=== PATIENT | male | born 1980 | race Caucasian/White ===

== ENCOUNTER 2017-03-31 02:11 | Observation (INO) | payer OTHER ==
[2017-03-31] MEDS ORDERED: ACETAMINOPHEN 325 MG TAB PO PRN (03:45)
[2017-03-31] MEDS ORDERED: ONDANSETRON 4 MG/2 ML VIAL IVP PRN (03:45)
[2017-03-31] MEDS ORDERED: ONDANSETRON DISINTEGRATING 4 MG TAB PO PRN (03:45)
--- NOTE | 2017-03-31 04:03 | PDGENHP ---
History and Physical - Chief Complaint Chest pain - History of Present Illness 36 yo M w/ hx of HTN(not on meds) and HLD presenting with chest pain. Patient woke up with mild chest discomfort on the day prior to admission. This discomfort persisted all day without much variation until he was getting ready for bed. At that point, pain spread to his neck and left arm. At that point he decided to go the [facility] ED. Upon arrival in ED, his BP was noted to be elevated at 170/100. Troponin was negative and ECG showed TWIs in III and AVF. Nitroglycerin x3 did not affect his pain but did lower his BP. His chest pain subsided over the next hour. Patient reports hx of borderline HTN(not on meds), and "very high triglycerides " for which he takes Niacin daily. He quit using tobacco in 2008 and has a family hx of HTN and HLD. He exercises ~5-6 times weekly and does not have chest pain with exercise. History Information - Allergies/Home Medication List Allergies/Adverse Reactions: No Allergies [NKDA] Allergy (Verified 03/31/17 03:45) I have personally reviewed and updated: family history, medical history - Past Medical History hypertension, hyperlipidemia - Surgical History Reports: no pertinent surgical hx - Family History Positive for: hypertension - Social History Smoking Status: Former smoker (Quit 2008) Alcohol Use: Occasionally Drug Use: None Review of Systems ROS: 10pt was reviewed & negative except for what was stated in HPI & below Physical Exam Constitutional: no apparent distress, appears nourished Eyes: PERRL, EOMI Ears, Nose, Mouth, Throat: moist mucous membranes, hearing normal Cardiovascular: regular rate and rhythym, no murmur, rub, or gallop, No edema Respiratory: no respiratory distress, clear to auscultation Gastrointestinal: normoactive bowel sounds, soft, non-tender abdomen Skin: warm, normal color Musculoskeletal: full muscle strength, no muscle tenderness Neurologic: AAOx3, CN II-XII Intact Psychiatric: interacting appropriately, not anxious Lab Data & Imaging Review Visualized and Interpreted EKG results: Yes EKG Interpretation: Positive for: normal sinsus rhythm, T waves inversion (III, AVF) Assessment & Plan Assessment: 36 yo M w/ HTN and HLD presenting with chest pain. Plan: 1. Chest pain - Fairly atypical story in that pain has no relation to exertion and not relieved by nitroglycerin. However, radiation to left arm and neck somewhat concerning. Low pre-test probability in this fit 36 yo M, but does report history of untreated HTN and "very high triglycerides". ECG at outside ED showed TWIs in III and AVF(no prior for comparison); troponin negative despite pain for >12 hours. - Continue to trend ECG/troponin - Monitor on telemetry - Check lipid panel, A1c - Would benefit from risk stratification w/ stress test (inpatient vs. outpatient) - No anticoagulation unless objective evidence of ischemia emerges - Will consult cardiology 2. HTN - Not on medications as an outpatient. 170/100 at outside ED, 130/90 upon arrival here. - Continue to monitor 3. Hyperlipidemia - Patient takes niacin for reported hx of high triglycerides. Checking lipid panel. Diet - Regular, caffeine free Code - Full Ppx - Ambulate TID Dispo - Admit to observation
[2017-03-31 04:11] VITALS: RESP 16
--- NOTE | 2017-03-31 04:45 | CPEKG ---
Heart Rate: 96 RR Interval: 625 P-R Interval: 144 QRSD Interval: 100 QT Interval: 332 QTC Interval: 420 P Pineland: 49 QRS [place]: 73 T Wave [place]: -15 EKG Severity - ABNORMAL ECG - EKG Impression: SINUS RHYTHM EKG Impression: ABNORMAL T, CONSIDER ISCHEMIA, INFERIOR LEADS EKG Impression: ST ELEV, PROBABLE NORMAL EARLY REPOL PATTERN Electronically Signed By: Guido Vines 31-Mar-2017 07:30:43
[2017-03-31 05:09] LABS: % IMMATURE GRANULYOCYTES 0.4 % (0.0-1.1); ABSOLUTE IMMATURE GRANULOCYTES 0.04 10^3/uL (0.00-0.10); ADD DIFF? NO; ADD MORPH? NO; ADD SCAN? NO; ATYPICAL LYMPHOCYTE FLAG 0 (0-99); FRAGMENT RBC FLAG 0 (0-99); HEMATOCRIT 45.3 % (40.0-51.0); HEMOGLOBIN 15.3 g/dL (13.7-17.5); LEFT SHIFT FLG 0 (0-99); LIPEMIA HEMOLYSIS FLAG 90 (0-99); MEAN CELL HEMOGLOBIN 28.5 pg (27.9-34.1); MEAN CELL HEMOGLOBIN CONCENTR. 33.8 g/dL (32.4-36.7); MEAN CELL VOLUME 84.5 fL (81.5-99.8); MEAN PLATELET VOLUME 11.2 fL (8.7-11.7); PLATELET CLUMPS FLAG 0 (0-99); PLATELET COUNT 261 10^3/uL (150-400); RED BLOOD CELL COUNT 5.36 10^6/uL (4.40-6.38); RED CELL DISTRIBUTION WIDTH 12.4 % (11.5-15.2)
[2017-03-31 05:33] LABS: ANION GAP 16 mEq/L (8-16); CARBON DIOXIDE 23 mEq/l (22-31); CHLORIDE 103 mEq/L (97-110); CHOLESTEROL 194 mg/dL (140-200); CHOLESTEROL/HDL RATIO 4.22 RATIO (1.00-4.97); CREATININE 1.1 mg/dL (0.7-1.3); GLOMERULAR FILTRATION RATE > 60; GLUCOSE 92 mg/dL (70-100); HIGH DENSITY LIPOPROTEIN 46 mg/dL (40-65); LDL/HDL RATIO 2.63 RATIO (1.00-3.64); LOW DENSITY LIPOPROTEIN 121 mg/dL (70-100); NON-HIGH DENSITY LIPOPROTEIN 148 mg/dL (90-129); SODIUM 142 mEq/L (134-144); TRIGLYCERIDE 139 mg/dL (40-150); VERY LOW DENSITY LIPOPROTEINS 27 mg/dL (8-25)
[2017-03-31 05:42] LABS: TROPONIN I < 0.012 ng/mL (0.000-0.034)
[2017-03-31 07:40] VITALS: TEMP 98.6
[2017-03-31] MEDS ORDERED: KETOROLAC 30 MG/1 ML SDV IVP ONE (09:08)
--- NOTE | 2017-03-31 10:45 | ECHO ---
[id number] + + [address] : : [place] [address] : : [phone] + + Adult Echocardiographic Report + ------+ :Name: LIZBETH CABRAL Edward Date: 03/31/2017 10:00 AM : : Hospital Admission Number: [id number] Locatio n: 215: :: 1980 Gender: Male Height: 70 in : :Age: 36 yrs Race: WH Weight: 190 lb : :Reason For Study: CP with mild rub : : BSA: 2.0 meters 2 : :History: No previous : + ------+ MMode/2D Measurements \T\ Calculations IVSd: 1.3 cm LVIDd: 4.2 cm FS: 39.3 % LVOT diam: 2.3 cm LVPWd: 0.98 cm LVIDs: 2.6 cm EDV(Teich): LVOT area: 79.2 ml 4.0 cm2 ESV(Teich): 23.6 ml EF(Teich): 70.2 % LVLd ap4: 8.1 cm SV(MOD-sp4): EDV(MOD-sp4): 45.0 ml 66.0 ml LVLs ap4: 7.1 cm ESV(MOD-sp4): 21.0 ml EF(MOD-sp4): 68.2 % Normal Measurement Values: + + :LVIDd (3.5-5.7cm) IVSd (0.6-1.1cm) LVPWd (0.6-1.1cm) Aortic Root (2.0-3.7cm)Left Atrium (1.5-4.0cm): :LV Vol(d) (76-115ml) LV Vol(s) (29-48ml) Ejec Fraction (50-65%)PV Samir (0.6- 1.2m/s) TV Samir (0.4-1.0m/s) : :MV E Samir (0.8-1.0m/s)MV A Samir (0.3-1.0m/s)LVOT Samir (0.7-1.2m/s) Asc Ao Samir ( 0.9-1.8m/s) : + + Doppler Measurements \T\ Calculations MV E max samir: 65.5 cm/sec PA V2 max: 96.4 cm/sec MV A max samir: 55.9 cm/sec PA max P.7 mmHg MV E/A: 1.2 MV dec time: 0.25 sec Left Ventricle The left ventricle is normal in size and function. There is moderate asymmetric left ventricular hypertrophy. Ejection Fraction = 70%. Normal diastolic function. The left ventricular wall motion is normal. Right Ventricle The right ventricle is normal in size and function. Atria The left atrial size is normal. Right atrial size is normal. Mitral Valve The mitral valve is normal in structure and function. There is no mitral valve stenosis. There is no mitral regurgitation noted. Tricuspid Valve The tricuspid valve is normal in structure and function. There is no tricuspid stenosis. No tricuspid regurgitation. Aortic Valve The aortic valve is normal in structure and function. There is no aortic stenosis. There is no aortic insufficiency. Pulmonic Valve The pulmonic valve is not well visualized. There is no pulmonic valvular regurgitation. Pericardium/Pleural There is no pericardial effusion. Conclusion A complete two-dimensional transthoracic echocardiogram was performed (2D, M-mode, Doppler and color flow Doppler). There is moderate asymmetric left ventricular hypertrophy. The left ventricle is normal in size and function. Ejection Fraction = 70%. The left ventricular wall motion is normal. No significant valvular disease No prior echo Final Reading Physician: Dr Shobha Akers electronically signed on 03/31/2017 10:44 AM Ordering Physician: Fermín Littlejohn Performed By: Kiersten Juan
[2017-03-31 11:10] VITALS: BP 133/84; PULSE 90; O2SAT 91
[2017-03-31 12:04] LABS: HEMATOCRIT 45.3 % (40.0-51.0)
[2017-03-31 12:23] LABS: C-REACTIVE PROTEIN 29.9 mg/L (<10.0)
[2017-03-31 12:32] LABS: TROPONIN I < 0.012 ng/mL (0.000-0.034)
--- NOTE | 2017-03-31 13:08 | GCON ---
[f rep st] CONSULTATION CARDIOLOGY CONSULTATION INDICATION FOR CARDIOLOGY CONSULTATION: Abnormal electrocardiogram and chest pressure. HISTORY OF PRESENT ILLNESS: The patient is a 36-year-old male, who is visiting from [place], [place]. He reports over the last 2 weeks he has been having episodes of mild midsternal chest pressure, usually coming on spontaneously, not associated with exertion, but with mild episodes of shortness of breath, and has noted that he has occasional episode of accelerated heart rate. Denies any lightheadedness, near-syncope, or syncopal events. Reporting yesterday morning waking up with a heavier chest pressure, midsternal, initially not associated with shortness of breath, nausea or diaphoresis. He went through most of the day feeling fatigue, but no other significant symptoms until last evening, when he noticed that the chest pressure had worsened, transferring into his left arm and up into his neck. This greatly concerned him, and he [facility] department. It was noted at his time of arrival, electrocardiogram was done, showing inverted T waves in leads III and aVF. Initial troponin was done which was negative. He was given nitroglycerin x3, and did not affect his pain. He was noted at the urgent care to have initial blood pressure of 170/100, and which the nitroglycerin did help bring the pressure down. Due to his EKG abnormality and ongoing chest pressure , it was decided that the patient should be further observed, and he was admitted to [facility] PCU. Upon arrival, a repeat electrocardiogram was done, showing really no significant changes, continuing having inverted T waves in lead II and aVF, with mild ST elevation in V2 through V4. He was asymptomatic at that time. Repeated troponin level was done again, and remained negative at 0.012. He has remained on telemetry, he has remained in sinus rhythm, with noted episodes of elevated heart rate to sinus tachycardia. At the time of my examination, patient reports that he continues to have mild chest pressure when he is moving, but feels no pressure if he stays still. He does report, when I sat him up, that he feels mildly better than lying flat. He also reports that pressure is mildly relieved when he takes a deep inspiration. He denies any history of orthopnea, PND, edema, lightheadedness, near-syncope, or syncopal events. He does admit that he thinks he might have had a couple of mild fevers in the last few weeks. Denies any symptoms suggestive of TIA or CVA. Does report a severe case of diarrhea 2 days ago, but no blood in the stool. The patient reports significant cardiac history of hyperlipidemia in which he has been changing his diet and exercising. He does report he exercises on a routine basis, even despite his fatigue with chest pain, and has had no symptoms with exertion. He also reports a history of borderline hypertension, which his PCP has been monitoring. His cardiac risk factors include sex, hypertension and hyperlipidemia. PAST MEDICAL HISTORY: Includes hypertension, in which he has been pre- hypertensive, and hyperlipidemia. Currently on no medications for either. PAST SURGICAL HISTORY: No pertinent surgical history. FAMILY HISTORY: Patient reports family history of hyperlipidemia and hypertension, but no significant family history of coronary artery disease. SOCIAL HISTORY: He is a former smoker; he quit in 2008. He occasionally uses alcohol. Denies any illicit drug use. He is not . ALLERGIES: Patient has no known drug allergies. MEDICATIONS: At home include niacin 1000 mg 1 tablet daily, omega-3 fatty acids 1 tablet daily, vitamin B complex 1 tablet daily. REVIEW OF SYSTEMS: A 10-point review of systems done on patient all negative except as mentioned above. PHYSICAL EXAMINATION: GENERAL APPEARANCE: Medium-built, well-groomed male. He is alert and oriented to person, place, time and situation. Appears to be under no acute distress. CURRENT VITAL SIGNS: Blood pressure 134/75, heart rate 101, sinus tachycardia on the monitor. Respirations 16, saturating 93% on 1 L nasal cannula. Temperature 37 degrees Celsius. HEENT: Head is normocephalic. Lips and tongue are pink and moist with no signs of cyanosis. Conjunctivae pink. NECK: Trachea is midline. +2 carotid pulses bilateral. No auscultated bruits. No jugular vein distention. RESPIRATORY: Lungs are clear to auscultation. No rhonchi, rales or wheezes. No accessory muscle use. No intercostal muscle retraction noted. CARDIAC: Regular rate, regular rhythm. S1, S2. A mild rub noted along the left sternal border. No S3 or murmurs noted. ABDOMEN: Soft, nontender. Bowel sounds x4 quadrants. No organomegaly. No palpable masses. SKIN: [place], warm, dry. No cyanosis, no clubbing, no peripheral edema. VASCULAR: +2 carotids bilateral, +2 radials bilateral, +2 dorsal pedal, +2 tibial pulses bilateral. LABORATORY STUDIES: Laboratory studies upon [facility] admission showed WBC of 10.42, hemoglobin of 15.3, hematocrit of 45.3, platelet count 261. Sodium 142, potassium 4.0, chloride 103, CO2 of 23, BUN 18, creatinine 1.1, glucose 92, calcium 10.0, magnesium 2.0. Troponin less than 0.012. Triglycerides 139, total cholesterol 194, LDL 121, HDL 46. STUDIES: Electrocardiogram done at 3:47 this morning showing sinus rhythm, T- wave inversion in leads II and aVF, mild 7 mm T-wave ST elevation in V2 through V6. ASSESSMENT AND PLAN: 1. Chest pain: The patient reports ongoing episodes of chest pain for the last 2 weeks. Does report worsening symptoms last evening with radiation to the left arm and shoulder. Does report some shortness of breath. Noted to have T-wave inversions in the lateral leads, negative troponins x2, noted mild rub on physical examination. Patient reporting chest pressure worsens with movement from 1 side to the other, and does improve when sitting up or taking a deep breath. The patient does report also recent 8-hour drive from [place] to [place] within the last week. At this time, potential differential diagnoses include acute coronary syndrome, pulmonary embolism, pericarditis, with pericarditis being the highest suspicion. At this time, I would like him to get a repeated troponin level for his 3rd level to be done. Also, because of positional chest ppressure, evaluate for possible inflammation, I would like him to have a sed rate and C-reactive protein done. Lastly, due to his recent long drive from [facility], I would like him to have a D-dimer drawn. I will also have him get an echocardiogram done to evaluate cardiac structure and function. Lastly, I would like to attempt to try him on a dose of IV Toradol to see if this helps with his pain. 2. Hypertension: Patient noted initially upon urgent care visit to have a significant blood pressure of 170/100. This is when he was anxious, and upon arrival to the hospital he was noted to be 130/90, currently 134/84. We will continue to monitor. We will hold off starting medication therapy at this time. 3. Hyperlipidemia: Patient reports that today's numbers are an improvement, and with his recent lifestyle change, his LDL remains mildly elevated. He has been encouraged to continue with healthy diet and routine exercise. If he has no improvement with these, consider starting him on a statin as an outpatient by his primary care provider. Thank you for this consultation. We will be glad to follow along with you. /[id number]/MODL MTDD
[2017-03-31] MEDS ORDERED: PANTOPRAZOLE SODIUM 40 MG TAB PO SCH (13:30)
[2017-03-31] MEDS ORDERED: IBUPROFEN 200 MG TAB PO SCH (14:00)
[2017-03-31] MEDS ORDERED: IBUPROFEN 800 MG TAB PO SCH (14:00)
--- NOTE | 2017-03-31 15:18 | GDS ---
[f rep st] DISCHARGE SUMMARY DISCHARGE DIAGNOSES: 1. Acute chest pain. Suspected pericarditis. 2. Possible hypertrophic cardiomyopathy. 3. Hypertension. 4. Hyperlipidemia. HISTORY OF PRESENT ILLNESS: A 36-year-old male with a history of hypertension on medications, and h yperlipidemia, who presents with complaints of positional chest pain. For details of the patient's initial presentation, please see the history and physical dated 03/31/2017. CONSULTATIVE SERVICES: Include Cardiology. PROCEDURES: 03/31/2017, patient had a transthoracic echocardiogram that shows no distinct pericardi al abnormality with the suggestion of septal wall thickening, no segmental wall motion abnormalities or valvular abnormalities. HOSPITAL COURSE BY ISSUE: 1. Chest pain. Patient's symptoms were quite positional. He has been feeling fatigued recently, b ut no specific viral symptoms. The patient was treated with a dose of Toradol with good response. A fter consultation with Cardiology, decision has been made to treat with anti-inflammatories at [facility] emergency department for suspected mild pericarditis. The patient is to follow in the outpatient setting with [facility] harding post discharge. CRP was checked and elevated at 29.9. Troponins remained negative overnight. Telemetry monitoring benign. EKG without acute changes. 2. Suspected hypertrophic cardiomyopathy. The patient had septal wall thickening, consistent with this diagnosis. Would benefit from additional imaging post discharge. He has been instructed to fo llow with Cardiology when he returns home for cardiac MRI. 3. Hypertension. Patient's blood pressures remained well controlled on his home medications. We w ill continue these at discharge. 4. Hyperlipidemia. Patient's triglyceride levels were markedly improved from his last reported. C ontinuing home medications as well as dietary modification. MEDICATIONS AT THE TIME OF DISPOSITION: Please reference med rec printed on 03/31/2017. Of note th e only change is the addition of scheduled ibuprofen for the next week until evaluated by Cardiology . PENDING STUDIES: At the time of this dictation are none. FOLLOWUP APPOINTMENTS: Include with Cardiology once he returns home to [place]. /[id number]/MODL
[2017-04-02 01:59] LABS: HEMOGLOBIN A1C 5.5 % (4.0-6.0)
== END 2017-03-31 15:56 | disposition home or self-care (01) ==
LOC: F2W 02:11
PROVIDERS: ADMIT Student in an Organized Health Care Education/Training Program; ATTEND Hospitalist
DX: R07.9 Chest pain, unspecified (principal); R94.31 Abnormal electrocardiogram [ECG] [EKG]; I51.7 Cardiomegaly; E78.5 Hyperlipidemia, unspecified; I10 Essential (primary) hypertension; Z87.891 Personal history of nicotine dependence
CPT/HCPCS: 93005; 93306; G0378; J1885